=== PATIENT | male | born 1940 | race Caucasian/White ===

== ENCOUNTER 2021-04-08 09:11 | Inpatient (IN) ==
[2021-04-08 13:02] LABS: Basophils # 0.1 10*3/uL (0.0-0.2); Basophils % 0.2 % (0.0-0.8); Hematocrit 36.1 VOL% (42.0-52.0); Hemoglobin 12.6 GM/DL (14.0-18.0); Immature Granulocytes % 0.7 %; Immature Granulocytes Absolute 0.19 #; Lymphocytes # 0.3 10*3/uL (1.4-4.0); Lymphocytes % 1.2 % (21.2-54.2); Mean Corpuscular HGB Conc 34.9 GM/DL (32-36); Mean Corpuscular Volume 91.9 FL (87-102); Mean Platelet Volume 9.1 FL (9.6-12.0); Monocytes % 7.4 % (1.7-12.7); Neutrophils % 90.5 % (38.7-73.9); Platelet Count 167 T/CUMM (130-400); Red Blood Count 3.93 MC/CUMM (3.8-5.5); Red Cell Distribution Width 12.2 % (9.3-17.3); White Blood Count 25.9 T/CUMM (4-12)
[2021-04-08 13:22] LABS: Bilirubin,Urine Negative (Negative); Blood, Urine Negative (Negative); Glucose,Urine (UA) Negative (Negative); Hyaline Casts,Urine 4 /LPF (0-3); Ketones,Urine Negative (Negative); Mucus,Urine Occasional /LPF (Occasional); Nitrite,Urine Negative (Negative); Protein,Urine Negative; RBC,Urine 1 /HPF (0-4); Squamous Epithelial Cell,Urine Occasional /HPF (0-10); Urine Appearance CLEAR (Clear); Urine Color Amber (Yellow); Urine Specific Gravity 1.016 (1.001-1.035)
[2021-04-08 13:27] LABS: Band Neutrophils 2 % (0-10); Segmented Neutrophils 93 % (50-85); Total Cells Counted 100
[2021-04-08 13:28] LABS: Albumin 3.5 G/DL (3.4-5.0); Bilirubin,Total 0.7 MG/DL (0.20-1.00); Calcium 9.4 MG/DL (8.5-10.1); Hypochromia Slight; Osmolality,Calculated 273.1 MOS/KG (273-304); Potassium 3.6 MMOL/L (3.5-5.1); Total Protein 6.7 G/DL (6.4-8.2)
[2021-04-08 13:29] LABS: Microcytosis Slight
[2021-04-08 13:30] LABS: Platelet Estimate Normal
[2021-04-08] MEDS ORDERED: SODIUM CHLORIDE 0.9% 1,000 ML IV STA (13:47)
[2021-04-08] MEDS ORDERED: hydrALAZINE 20 MG/1 ML VIAL IV PRN (13:49)
[2021-04-08] MEDS ORDERED: NICOTINE 21 MG/24 HR PATCH TRANSDERM PRN (13:49)
[2021-04-08] MEDS ORDERED: ZALEPLON 5 MG CAPSULE PO PRN (13:49)
[2021-04-08] MEDS ORDERED: DEXTROSE 50% 25 GM/50 ML SYRINGE IV PRN (13:49)
[2021-04-08] MEDS ORDERED: diphenhydrAMINE CAP 25 MG CAPSULE PO PRN (13:49)
[2021-04-08] MEDS ORDERED: ACETAMINOPHEN 325 MG TABLET PO PRN (13:49)
[2021-04-08] MEDS ORDERED: ONDANSETRON 4 MG/2 ML VIAL IV PRN (13:49)
[2021-04-08] MEDS ORDERED: MORPHINE 2 MG/1 ML SYRINGE IV PRN (13:49)
[2021-04-08] MEDS ORDERED: GLUCAGON 1 MG VIAL IM PRN (13:49)
[2021-04-08] MEDS ORDERED: guaiFENesin/DM ER 600-30 MG TABLET PO PRN (13:49)
[2021-04-08] MEDS ORDERED: ALBUTEROL/IPRATROPIUM 3 ML NEB RESP TX PRN (13:49)
[2021-04-08] MEDS ORDERED: cefTRIAXone 1,000 MG VIAL ONE (15:40)
[2021-04-08] MEDS: SODIUM CHLORIDE 0.9% 1,000 ML IV SCH ×2 (15:58→18:26)
[2021-04-08] MEDS: cefTRIAXone 2,000 MG in SODIUM CHLORIDE 0.9% 100 ML IV SCH (15:59)
[2021-04-09 05:23] LABS: Hematocrit 32.7 VOL% (42.0-52.0); Hemoglobin 10.9 GM/DL (14.0-18.0); Mean Corpuscular HGB Conc 33.3 GM/DL (32-36); Mean Corpuscular Volume 94.8 FL (87-102); Red Blood Count 3.45 MC/CUMM (3.8-5.5); Red Cell Distribution Width 12.3 % (9.3-17.3); White Blood Count 11.2 T/CUMM (4-12)
[2021-04-09 05:24] LABS: Basophils % 0.4 % (0.0-0.8); Eosinophils # 0.1 10*3/uL (0.0-0.87); Eosinophils % 0.4 % (0.00-10.9); Immature Granulocytes % 0.4 %; Immature Granulocytes Absolute 0.04 #; Lymphocytes # 0.8 10*3/uL (1.4-4.0); Lymphocytes % 6.9 % (21.2-54.2); Mean Platelet Volume 9.1 FL (9.6-12.0); Monocytes % 8.8 % (1.7-12.7); Neutrophils % 83.1 % (38.7-73.9); Platelet Count 132 T/CUMM (130-400)
[2021-04-09 05:50] LABS: Calcium 8.8 MG/DL (8.5-10.1); Osmolality,Calculated 271.2 MOS/KG (273-304); Potassium 3.8 MMOL/L (3.5-5.1)
[2021-04-09] MEDS: SODIUM CHLORIDE 0.9% 1,000 ML IV SCH ×2 (06:08→21:12)
[2021-04-09] MEDS: BISACODYL 5 MG TABLET PO SCH (09:18)
[2021-04-09] MEDS: PANTOPRAZOLE 40 MG TABLET PO SCH (09:19)
[2021-04-09] MEDS: HEPARIN 5,000 UNIT/1 ML VIAL SUBCUT SCH ×2 (09:20→21:13)
[2021-04-09] MEDS: cefTRIAXone 2,000 MG in SODIUM CHLORIDE 0.9% 100 ML IV SCH (15:13)
[2021-04-10] MEDS: BISACODYL 5 MG TABLET PO SCH (09:13)
[2021-04-10] MEDS: PANTOPRAZOLE 40 MG TABLET PO SCH (09:13)
[2021-04-10] MEDS: HEPARIN 5,000 UNIT/1 ML VIAL SUBCUT SCH ×2 (09:13→20:27)
[2021-04-10 09:43] LABS: Basophils % 0.4 % (0.0-0.8); Eosinophils # 0.2 10*3/uL (0.0-0.87); Eosinophils % 3.3 % (0.00-10.9); Hematocrit 34.1 VOL% (42.0-52.0); Hemoglobin 11.5 GM/DL (14.0-18.0); Immature Granulocytes % 0.6 %; Immature Granulocytes Absolute 0.03 #; Lymphocytes # 0.7 10*3/uL (1.4-4.0); Lymphocytes % 13.1 % (21.2-54.2); Mean Corpuscular HGB Conc 33.7 GM/DL (32-36); Mean Corpuscular Volume 93.7 FL (87-102); Monocytes % 12.5 % (1.7-12.7); Neutrophils % 70.1 % (38.7-73.9); Platelet Count 123 T/CUMM (130-400); Red Blood Count 3.64 MC/CUMM (3.8-5.5); Red Cell Distribution Width 12.3 % (9.3-17.3); White Blood Count 5.1 T/CUMM (4-12)
[2021-04-10 10:14] LABS: Alanine Aminotransferase 34 U/L (16-61); Albumin 2.8 G/DL (3.4-5.0); Alkaline Phosphatase 88 U/L (45-117); Aspartate Amino Transferase 30 U/L (0-37); Bilirubin,Total < 0.39 MG/DL (0.20-1.00); Blood Urea Nitrogen 18 MG/DL (7-18); Calcium 9.1 MG/DL (8.5-10.1); Carbon Dioxide 28 MMOL/L (21-32); Estimated Glom Filtration Rate 53 ML/MIN; Glucose 156 MG/DL (74-106); Osmolality,Calculated 277.8 MOS/KG (273-304); Sodium 137 MMOL/L (136-145)
[2021-04-10] MEDS: cefTRIAXone 2,000 MG in SODIUM CHLORIDE 0.9% 100 ML IV SCH (14:32)
[2021-04-10] MEDS: cephALEXin 500 MG CAPSULE PO SCH (20:27)
[2021-04-11 05:28] LABS: Basophils % 0.5 % (0.0-0.8); Eosinophils # 0.2 10*3/uL (0.0-0.87); Eosinophils % 4.3 % (0.00-10.9); Hematocrit 34.1 VOL% (42.0-52.0); Hemoglobin 11.5 GM/DL (14.0-18.0); Immature Granulocytes % 0.9 %; Immature Granulocytes Absolute 0.05 #; Lymphocytes # 0.9 10*3/uL (1.4-4.0); Lymphocytes % 15.7 % (21.2-54.2); Mean Corpuscular HGB Conc 33.7 GM/DL (32-36); Mean Corpuscular Volume 93.2 FL (87-102); Mean Platelet Volume 9.3 FL (9.6-12.0); Monocytes % 12.5 % (1.7-12.7); Neutrophils % 66.1 % (38.7-73.9); Platelet Count 151 T/CUMM (130-400); Red Blood Count 3.66 MC/CUMM (3.8-5.5); Red Cell Distribution Width 12.1 % (9.3-17.3); White Blood Count 5.6 T/CUMM (4-12)
[2021-04-11 05:48] LABS: Alanine Aminotransferase 37 U/L (16-61); Albumin 2.7 G/DL (3.4-5.0); Alkaline Phosphatase 97 U/L (45-117); Aspartate Amino Transferase 32 U/L (0-37); Bilirubin,Total < 0.39 MG/DL (0.20-1.00); Blood Urea Nitrogen 14 MG/DL (7-18); Calcium 9.4 MG/DL (8.5-10.1); Carbon Dioxide 28 MMOL/L (21-32); Estimated Glom Filtration Rate 58 ML/MIN; Glucose 94 MG/DL (74-106); Osmolality,Calculated 277.5 MOS/KG (273-304); Potassium 3.9 MMOL/L (3.5-5.1); Sodium 139 MMOL/L (136-145); Total Protein 5.9 G/DL (6.4-8.2)
[2021-04-11] MEDS: SODIUM CHLORIDE 0.9% 1,000 ML IV SCH (07:50)
[2021-04-11] MEDS: HEPARIN 5,000 UNIT/1 ML VIAL SUBCUT SCH (08:37)
[2021-04-11] MEDS: cephALEXin 500 MG CAPSULE PO SCH (08:37)
[2021-04-11] MEDS: PANTOPRAZOLE 40 MG TABLET PO SCH (08:37)
[2021-04-11] MEDS: BISACODYL 5 MG TABLET PO SCH (08:37)
[2021-04-11] MEDS ORDERED: cefTRIAXone 1,000 MG in SODIUM CHLORIDE 0.9% 100 ML IV ONE (11:00)
[2021-04-11 11:38] VITALS: BP 135/60
== END 2021-04-11 13:40 | disposition home or self-care (01) | DRG 690 ==
LOC: SUATTDRO → N.ED 09:11 → N.5E 13:49
PROVIDERS: ADMIT Internal Medicine; ATTEND Internal Medicine

== ENCOUNTER 2022-05-19 11:30 | Inpatient (IN) ==
[2022-05-19] MEDS ORDERED: ACETAMINOPHEN 325 MG TABLET PO PRN (13:16)
[2022-05-19] MEDS ORDERED: ONDANSETRON 4 MG/2 ML VIAL IV PRN (13:16)
[2022-05-19] MEDS: SODIUM CHLORIDE 0.45% 1,000 ML IV SCH ×2 (15:02→22:36)
[2022-05-19] MEDS: ENOXAPARIN 40 MG/0.4 ML SYRINGE SUBCUT SCH (15:02)
[2022-05-19] MEDS: ISOSORBIDE MONONITRATE 20 MG TABLET PO SCH (15:02)
[2022-05-19] MEDS ORDERED: SODIUM CHLORIDE 0.9% 500 ML IV ONE (15:34)
[2022-05-19] MEDS: FINASTERIDE 5 MG TABLET PO SCH (21:00)
[2022-05-19] MEDS: TAMSULOSIN 0.4 MG CAPSULE PO SCH (21:00)
[2022-05-19] MEDS: DOCUSATE SODIUM 100 MG CAPSULE PO SCH (21:00)
[2022-05-19] MEDS: ATORVASTATIN 10 MG TABLET PO SCH (21:00)
[2022-05-20] MEDS: SODIUM CHLORIDE 0.45% 1,000 ML IV SCH ×2 (06:29→16:47)
[2022-05-20 08:06] LABS: Basophils % 0.3 % (0.0-0.8); Eosinophils # 0.6 10*3/uL (0.0-0.87); Eosinophils % 8.5 % (0.00-10.9); Hematocrit 31.3 VOL% (42.0-52.0); Hemoglobin 10.6 GM/DL (14.0-18.0); Immature Granulocytes % 0.9 %; Immature Granulocytes Absolute 0.07 #; Lymphocytes # 0.6 10*3/uL (1.4-4.0); Lymphocytes % 7.7 % (21.2-54.2); Mean Corpuscular HGB Conc 33.9 GM/DL (32-36); Mean Corpuscular Volume 91.5 FL (87-102); Mean Platelet Volume 8.8 FL (9.6-12.0); Monocytes # 0.9 10*3/uL (0.11-0.8); Monocytes % 12.4 % (1.7-12.7); Neutrophils % 70.2 % (38.7-73.9); Platelet Count 129 T/CUMM (130-400); Red Blood Count 3.42 MC/CUMM (3.8-5.5); Red Cell Distribution Width 12.7 % (9.3-17.3); White Blood Count 7.42 T/CUMM (4-12)
[2022-05-20 08:22] LABS: Total Protein 5.9 G/DL (6.4-8.2)
[2022-05-20] MEDS: ENOXAPARIN 40 MG/0.4 ML SYRINGE SUBCUT SCH (08:59)
[2022-05-20] MEDS: DOCUSATE SODIUM 100 MG CAPSULE PO SCH ×2 (08:59→20:44)
[2022-05-20] MEDS: TAMSULOSIN 0.4 MG CAPSULE PO SCH ×2 (08:59→20:44)
[2022-05-20] MEDS ORDERED: PANTOPRAZOLE 40 MG TABLET PO SCH (09:00)
[2022-05-20 09:46] LABS: Total Protein (Chem) 5.9 G/DL (6.4-8.3)
[2022-05-20 10:08] LABS: RBC,Urine <1 /HPF (0-4); Urine Appearance Clear (Clear); Urine Color Yellow (Yellow)
[2022-05-20 10:09] LABS: Bilirubin,Urine Negative (Negative); Blood, Urine Negative (Negative); Glucose,Urine (UA) Negative (Negative); Ketones,Urine Negative (Negative); Nitrite,Urine Negative (Negative); Protein,Urine Negative (Negative); Urine Specific Gravity <= 1.005 (1.001-1.035); Urine Urobilinogen 0.2 eU/dL (<2.0); Urine pH 5.5 (4.5-8.0)
[2022-05-20 11:12] LABS: Albumin (SPE) 3.5 G/DL (3.2-5.3); Albumin (SPE) Rel % 59.7 %; Alpha 1 (SPE) 0.3 G/DL (0.1-0.4); Alpha 1 (SPE) Rel % 5.2 %; Alpha 2 (SPE) 0.9 G/DL (0.4-1.0); Alpha 2 (SPE) Rel % 15.4 %; Beta (SPE) 0.7 G/DL (0.5-1.1); Beta (SPE) Rel % 12.2 %; Gamma (SPE) 0.4 G/DL (0.7-1.7); Gamma (SPE) Rel % 7.5 %
[2022-05-20] MEDS: DEXTROMETHORPHAN ER 6 MG/ML 90 ML/BOTTLE PO PRN ×2 (11:30→20:45)
[2022-05-20] MEDS: ISOSORBIDE MONONITRATE 20 MG TABLET PO SCH ×2 (11:38→14:05)
[2022-05-20] MEDS: traZODone 50 MG TABLET PO SCH (20:44)
[2022-05-20] MEDS: FINASTERIDE 5 MG TABLET PO SCH (20:44)
[2022-05-20] MEDS: PANTOPRAZOLE 40 MG TABLET PO SCH (20:44)
[2022-05-20] MEDS: ATORVASTATIN 10 MG TABLET PO SCH (20:45)
[2022-05-21] MEDS: SODIUM CHLORIDE 0.45% 1,000 ML IV SCH ×2 (00:27→06:25)
[2022-05-21 06:04] LABS: Basophils % 0.2 % (0.0-0.8); Eosinophils # 0.7 10*3/uL (0.0-0.87); Hematocrit 29.2 VOL% (42.0-52.0); Hemoglobin 9.8 GM/DL (14.0-18.0); Immature Granulocytes % 1.3 %; Immature Granulocytes Absolute 0.08 #; Lymphocytes # 0.5 10*3/uL (1.4-4.0); Lymphocytes % 8.1 % (21.2-54.2); Mean Corpuscular HGB Conc 33.6 GM/DL (32-36); Mean Corpuscular Volume 92.4 FL (87-102); Mean Platelet Volume 8.9 FL (9.6-12.0); Monocytes # 0.8 10*3/uL (0.11-0.8); Monocytes % 12.6 % (1.7-12.7); Neutrophils % 66.8 % (38.7-73.9); Platelet Count 131 T/CUMM (130-400); Red Blood Count 3.16 MC/CUMM (3.8-5.5); Red Cell Distribution Width 12.8 % (9.3-17.3); White Blood Count 6.17 T/CUMM (4-12)
[2022-05-21 06:30] LABS: Band Neutrophils 3 % (0-10); Eosinophils 14 % (0-10); Lymphocytes 8 % (20-55); Total Cells Counted 100
[2022-05-21 06:31] LABS: Platelet Estimate Adequate
[2022-05-21] MEDS: ENOXAPARIN 40 MG/0.4 ML SYRINGE SUBCUT SCH (08:37)
[2022-05-21] MEDS: DOCUSATE SODIUM 100 MG CAPSULE PO SCH ×2 (08:37→20:47)
[2022-05-21] MEDS: TAMSULOSIN 0.4 MG CAPSULE PO SCH ×2 (08:37→20:46)
[2022-05-21] MEDS: ISOSORBIDE MONONITRATE 20 MG TABLET PO SCH ×2 (08:37→16:19)
[2022-05-21] MEDS: PANTOPRAZOLE 40 MG TABLET PO SCH ×2 (08:37→20:46)
[2022-05-21] MEDS: DEXTROMETHORPHAN ER 6 MG/ML 90 ML/BOTTLE PO PRN (08:43)
[2022-05-21 09:29] LABS: Calcium 9.3 MG/DL (8.5-10.1); Osmolality,Calculated 273.2 MOS/KG (273-304); Potassium 4.2 MMOL/L (3.5-5.1)
[2022-05-21] MEDS: methylPREDNISolone SOD SUC 40 MG/1 ML VIAL IV SCH ×2 (09:45→16:20)
[2022-05-21 10:34] LABS: Total Protein 24 Hr Ur Result 282 MG/24HR (0-149.1); Total Volume,Urine 2350 ML (400-2000)
[2022-05-21 18:41] LABS: Myeloperoxidase Antibody < 0.2 U
[2022-05-21] MEDS: FINASTERIDE 5 MG TABLET PO SCH (20:46)
[2022-05-21] MEDS: traZODone 50 MG TABLET PO SCH (20:46)
[2022-05-21] MEDS: ATORVASTATIN 10 MG TABLET PO SCH (20:47)
[2022-05-22] MEDS: methylPREDNISolone SOD SUC 40 MG/1 ML VIAL IV SCH ×4 (02:56→17:44)
[2022-05-22 07:44] LABS: Basophils % 0.1 % (0.0-0.8); Eosinophils % 0.1 % (0.00-10.9); Hematocrit 29.7 VOL% (42.0-52.0); Hemoglobin 10.3 GM/DL (14.0-18.0); Immature Granulocytes % 1.1 %; Immature Granulocytes Absolute 0.09 #; Lymphocytes # 0.2 10*3/uL (1.4-4.0); Lymphocytes % 2.9 % (21.2-54.2); Mean Corpuscular HGB Conc 34.7 GM/DL (32-36); Mean Corpuscular Volume 89.7 FL (87-102); Mean Platelet Volume 8.8 FL (9.6-12.0); Monocytes # 0.5 10*3/uL (0.11-0.8); Monocytes % 5.9 % (1.7-12.7); Neutrophils % 89.9 % (38.7-73.9); Platelet Count 132 T/CUMM (130-400); Red Blood Count 3.31 MC/CUMM (3.8-5.5); Red Cell Distribution Width 12.4 % (9.3-17.3); White Blood Count 8.26 T/CUMM (4-12)
[2022-05-22 07:59] LABS: 24 Hr Protein (Bench) 282 MG/24HR (0-149.1)
[2022-05-22 08:09] LABS: Band Neutrophils 1 % (0-10); Lymphocytes 3 % (20-55); Total Cells Counted 100
[2022-05-22 08:10] LABS: Platelet Estimate Normal
[2022-05-22 08:22] LABS: Albumin 2.4 G/DL (3.4-5.0); Bilirubin,Direct 0.16 MG/DL (0.0-0.20); Bilirubin,Indirect 0.3 MG/DL (0.0-1.0); Bilirubin,Total 0.5 MG/DL (0.20-1.00); Total Protein 5.8 G/DL (6.4-8.2)
[2022-05-22] MEDS: DOCUSATE SODIUM 100 MG CAPSULE PO SCH ×2 (09:35→20:28)
[2022-05-22] MEDS: PANTOPRAZOLE 40 MG TABLET PO SCH ×2 (09:35→20:28)
[2022-05-22] MEDS: ISOSORBIDE MONONITRATE 20 MG TABLET PO SCH ×2 (09:35→15:56)
[2022-05-22] MEDS: TAMSULOSIN 0.4 MG CAPSULE PO SCH ×2 (09:35→20:27)
[2022-05-22] MEDS: ENOXAPARIN 40 MG/0.4 ML SYRINGE SUBCUT SCH (10:24)
[2022-05-22] MEDS: DEXTROMETHORPHAN ER 6 MG/ML 90 ML/BOTTLE PO PRN (17:45)
[2022-05-22 19:41] LABS: QuantiFERON-Tb Gold Pl Negative (Negative); TB2 Ag Minus Result 0.02 IU/mL
[2022-05-22] MEDS: traZODone 50 MG TABLET PO SCH (20:28)
[2022-05-22] MEDS: ATORVASTATIN 10 MG TABLET PO SCH (20:28)
[2022-05-22] MEDS: FINASTERIDE 5 MG TABLET PO SCH (20:28)
[2022-05-23] MEDS: methylPREDNISolone SOD SUC 40 MG/1 ML VIAL IV SCH ×2 (01:15→09:17)
[2022-05-23] MEDS: TAMSULOSIN 0.4 MG CAPSULE PO SCH (09:16)
[2022-05-23] MEDS: DOCUSATE SODIUM 100 MG CAPSULE PO SCH (09:16)
[2022-05-23] MEDS: PANTOPRAZOLE 40 MG TABLET PO SCH (09:16)
[2022-05-23] MEDS: ENOXAPARIN 40 MG/0.4 ML SYRINGE SUBCUT SCH (09:17)
[2022-05-23] MEDS: ISOSORBIDE MONONITRATE 20 MG TABLET PO SCH (09:17)
[2022-05-23 11:58] VITALS: BP 132/53
== END 2022-05-23 14:35 | disposition home health service (06) | DRG 864 ==
LOC: N.3E
PROVIDERS: ADMIT Family Medicine; ATTEND Family Medicine